=== PATIENT | male | born 1965 | race Caucasian/White ===

== ENCOUNTER 2018-06-05 20:08 | Observation (INO) ==
[2018-06-05] MEDS ORDERED: LACTATED RINGERS 1,000 ML IV STA (20:13)
[2018-06-05] MEDS ORDERED: DIPHTHERIA/TETANUS ADULT VACCINE 0.5 ML VIAL IM ONE (20:13)
[2018-06-05] MEDS ORDERED: ONDANSETRON 4 MG/2 ML VIAL ONE (20:16)
[2018-06-05] MEDS ORDERED: fentaNYL 100 MCG/2 ML VIAL ONE ×2 (20:17→23:26)
[2018-06-05] MEDS ORDERED: ONDANSETRON 4 MG/2 ML VIAL IV STA (20:18)
[2018-06-05] MEDS ORDERED: fentaNYL 100 MCG/2 ML VIAL IV STA (20:18)
[2018-06-05 20:27] LABS: Basophils % 0.4 % (0.0-0.8); Eosinophils # 0.1 10*3/uL (0.0-0.87); Eosinophils % 2.7 % (0.00-10.9); Hematocrit 35.6 VOL% (42.0-52.0); Hemoglobin 11.1 GM/DL (14.0-18.0); Immature Granulocytes % 0.7 %; Immature Granulocytes Absolute 0.03 #; Lymphocytes % 44.7 % (21.2-54.2); Mean Corpuscular HGB Conc 31.2 GM/DL (32-36); Mean Corpuscular Hemoglobin 27 PG (27-34); Mean Corpuscular Volume 86.6 FL (87-102); Mean Platelet Volume 10.2 FL (9.6-12.0); Monocytes # 0.5 10*3/uL (0.11-0.8); Monocytes % 10.4 % (1.7-12.7); Neutrophils # 1.9 10*3/uL (1.4-7.4); Neutrophils % 41.1 % (38.7-73.9); Platelet Count 228 T/CUMM (130-400); Red Blood Count 4.11 MC/CUMM (3.8-5.5); Red Cell Distribution Width 13.6 % (9.3-17.3); White Blood Count 4.5 T/CUMM (4-12)
[2018-06-05 20:37] LABS: INR 0.9; PT Patient Result 10.1 SECS; Partial Thromboplastin Time < 21.0 SECS (0-40)
[2018-06-05] MEDS ORDERED: LACTATED RINGERS 1,000 ML IV ONE (20:40)
[2018-06-05 20:48] LABS: Lactic Acid 7.6 MMOL/L (0.4-2.0)
[2018-06-05 20:49] LABS: Alanine Aminotransferase 20 U/L (16-61); Albumin 2.8 G/DL (3.4-5.0); Alkaline Phosphatase 105 U/L (45-117); Amylase 45 U/L (25-115); Aspartate Amino Transferase 18 U/L (0-37); Bilirubin,Total < 0.39 MG/DL (0.2-1.0); Blood Urea Nitrogen 15 MG/DL (7-18); Calcium 7.7 MG/DL (8.5-10.1); Glucose 149 MG/DL (74-106); Potassium 3.1 MMOL/L (3.5-5.1); Sodium 143 MMOL/L (136-145); Total Protein 5.9 G/DL (6.4-8.3)
[2018-06-05] MEDS ORDERED: SODIUM CHLORIDE 0.9% 1,000 ML IV STA (21:10)
[2018-06-05] MEDS ORDERED: ONDANSETRON 4 MG/2 ML VIAL IV PRN (21:50)
[2018-06-05] MEDS: LACTATED RINGERS 1,000 ML IV SCH (22:23)
[2018-06-05 22:33] LABS: Hematocrit 32.5 VOL% (42.0-52.0); Hemoglobin 10.2 GM/DL (14.0-18.0)
[2018-06-05] MEDS ORDERED: SEVOFLURANE 1 UNIT/15 MINUTE INH ONE (23:26)
[2018-06-05] MEDS ORDERED: PROPOFOL 200 MG/20 ML VIAL IV ONE (23:26)
[2018-06-05] MEDS ORDERED: MIDAZOLAM 2 MG/2 ML VIAL ONE (23:26)
[2018-06-05] MEDS ORDERED: PHENYLEPHRINE 1 MG/10 ML SYRINGE IV ONE (23:27)
[2018-06-05] MEDS ORDERED: SUCCINYLCHOLINE 200 MG/10 ML VIAL ONE (23:27)
[2018-06-05] MEDS ORDERED: ROCURONIUM 100 MG/10 ML VIAL IV ONE ×2 (23:27)
[2018-06-06 04:53] LABS: Calcium 6.9 MG/DL (8.5-10.1); Osmolality,Calculated 290.6 MOS/KG (273-304); Potassium 3.7 MMOL/L (3.5-5.1)
[2018-06-06 05:40] LABS: Hemoglobin 9.8 GM/DL (14.0-18.0)
[2018-06-06] MEDS: LACTATED RINGERS 1,000 ML IV SCH (06:32)
[2018-06-06 13:52] VITALS: BP 123/79
== END 2018-06-06 13:35 | disposition home or self-care (01) ==
LOC: N.ED 20:08 → N.EDINP 20:34 → INTOOBSV 20:34 → N.3E 20:53 → N.ICU 22:02
PROVIDERS: ADMIT Surgery; ATTEND Surgery

== ENCOUNTER 2020-02-25 17:51 | Inpatient (IN) ==
[2020-02-25] MEDS ORDERED: SUCCINYLCHOLINE 200 MG/10 ML VIAL IV ONE (17:52)
[2020-02-25] MEDS ORDERED: ETOMIDATE 20 MG/10 ML VIAL IV ONE (17:52)
[2020-02-25 17:59] LABS: Basophils # 0.1 10*3/uL (0.0-0.2); Basophils % 0.9 % (0.0-0.8); Eosinophils # 0.1 10*3/uL (0.0-0.87); Eosinophils % 1.3 % (0.00-10.9); Hematocrit 38.3 VOL% (42.0-52.0); Hemoglobin 12.1 GM/DL (14.0-18.0); Immature Granulocytes % 0.3 %; Immature Granulocytes Absolute 0.02 #; Lymphocytes # 3.4 10*3/uL (1.4-4.0); Lymphocytes % 47.9 % (21.2-54.2); Mean Corpuscular HGB Conc 31.6 GM/DL (32-36); Mean Corpuscular Volume 86.5 FL (87-102); Mean Platelet Volume 9.8 FL (9.6-12.0); Monocytes % 9.4 % (1.7-12.7); Neutrophils % 40.2 % (38.7-73.9); Platelet Count 297 T/CUMM (130-400); Red Blood Count 4.43 MC/CUMM (3.8-5.5); Red Cell Distribution Width 14.2 % (9.3-17.3); White Blood Count 7.1 T/CUMM (4-12)
[2020-02-25 18:14] LABS: ABG Base Excess -4.5 MMOL/L (-2.5-2.5); ABG HCO3 20.7 MMOL/L (20-26); ABG Oxygen Saturation 99.8 % (95-100)
[2020-02-25 18:15] LABS: ABG PH 7.168 (7.35-7.45)
[2020-02-25 18:22] LABS: Alanine Aminotransferase 38 U/L (16-61); Alkaline Phosphatase 100 U/L (45-117); Aspartate Amino Transferase 47 U/L (0-37); Blood Urea Nitrogen 24 MG/DL (7-18); Calcium 8.9 MG/DL (8.5-10.1); Estimated Glom Filtration Rate 55 ML/MIN; Glucose 228 MG/DL (74-106); Osmolality,Calculated 285.7 MOS/KG (273-304); Total Protein 8.1 G/DL (6.4-8.3)
[2020-02-25] MEDS ORDERED: LACTATED RINGERS 1,000 ML IV ONE ×2 (18:29→19:38)
[2020-02-25 19:28] LABS: Acetaminophen < 2.0 UG/ML (10-30); Salicylate < 2.8 MG/DL (2.8-20)
[2020-02-25 20:04] LABS: Apearance,Urine CLOUDY (Clear); Bilirubin,Urine Negative (Negative); Blood, Urine Large mg/dL (Negative); Glucose,Urine (UA) Negative (Negative); Hyaline Casts,Urine 17 /LPF (0-3); Ketones,Urine Negative (Negative); Mucus,Urine Occasional /LPF (Occasional); Nitrite,Urine Negative (Negative); Protein,Urine Negative; RBC,Urine 184 /HPF (0-4); Sperm,Urine Many /HPF (Negative); Urine Color Yellow (Yellow); Urine Specific Gravity 1.021 (1.001-1.035); WBC,Urine 74 /HPF (0-6)
[2020-02-25 20:06] LABS: ABG Base Excess -1.7 MMOL/L (-2.5-2.5); ABG PCO2 52.6 MM HG (35-48); ABG PH 7.292 (7.35-7.45); ABG TCO2 23.3 MMOL/L (23-27); Allen Test Positive; Pt O2 Delivery Device Ventilator
[2020-02-25] MEDS ORDERED: ALBUTEROL 2.5 MG/3 ML NEB RESP TX PRN (20:10)
[2020-02-25] MEDS ORDERED: ALBUTEROL/IPRATROPIUM 3 ML NEB RESP TX PRN (20:10)
[2020-02-25] MEDS ORDERED: ONDANSETRON 4 MG/2 ML VIAL IV PRN (20:10)
[2020-02-25 20:12] LABS: Barbiturates Screen,Urine Negative (Negative); Benzodiazepines Screen,Urine Negative (Negative); Cannabinoid Screen,Urine Negative (Negative); Opiate Screen,Urine Negative (Negative); Phencyclidine Screen,Urine Negative (Negative)
[2020-02-25] MEDS ORDERED: DEXTROSE 5% NACL 0.9% 1,000 ML IV SCH (20:30)
[2020-02-25] MEDS ORDERED: NITROGLYCERIN 2% OINT 1 INCH/GM PACK TOP ONE ×2 (20:41→21:01)
[2020-02-25] MEDS ORDERED: ASPIRIN 325 MG TABLET ONE (20:41)
[2020-02-25] MEDS ORDERED: ASPIRIN 325 MG TABLET PO ONE (21:02)
[2020-02-25 21:41] VITALS: BP 95/65
[2020-02-25 22:14] LABS: ABG HCO3 25.3 MMOL/L (20-26); ABG PCO2 41.6 MM HG (35-48); ABG PH 7.401 (7.35-7.45); ABG TCO2 23.1 MMOL/L (23-27)
[2020-02-25] MEDS: ENOXAPARIN 40 MG/0.4 ML SYRINGE SUBCUT SCH (22:24)
[2020-02-25] MEDS: PANTOPRAZOLE 40 MG VIAL IV SCH (22:24)
[2020-02-25] MEDS: LACTATED RINGERS 1,000 ML IV SCH (22:25)
[2020-02-26] MEDS: LACTATED RINGERS 1,000 ML IV SCH ×5 (01:24→23:05)
[2020-02-26 03:54] LABS: ABG Base Excess 0.8 MMOL/L (-2.5-2.5); ABG HCO3 25.1 MMOL/L (20-26); ABG Oxygen Saturation 99.6 % (95-100); ABG PCO2 36.1 MM HG (35-48); ABG PH 7.441 (7.35-7.45); ABG TCO2 22.2 MMOL/L (23-27); Allen Test Positive; Pt O2 Delivery Device Ventilator
[2020-02-26 03:59] LABS: Basophils % 0.5 % (0.0-0.8); Eosinophils # 0.1 10*3/uL (0.0-0.87); Eosinophils % 1.9 % (0.00-10.9); Hematocrit 33.2 VOL% (42.0-52.0); Hemoglobin 10.7 GM/DL (14.0-18.0); Immature Granulocytes % 0.2 %; Immature Granulocytes Absolute 0.01 #; Lymphocytes # 1.4 10*3/uL (1.4-4.0); Lymphocytes % 33.4 % (21.2-54.2); Mean Corpuscular HGB Conc 32.2 GM/DL (32-36); Mean Corpuscular Volume 83.6 FL (87-102); Mean Platelet Volume 9.8 FL (9.6-12.0); Monocytes % 8.7 % (1.7-12.7); Neutrophils % 55.3 % (38.7-73.9); Red Blood Count 3.97 MC/CUMM (3.8-5.5); Red Cell Distribution Width 14.1 % (9.3-17.3)
[2020-02-26 04:00] LABS: Platelet Count 202 T/CUMM (130-400); White Blood Count 4.1 T/CUMM (4-12)
[2020-02-26] MEDS ORDERED: DEXAMETHASONE INJ 10 MG in SODIUM CHLORIDE 0.9% 50 ML IV ONE (04:00)
[2020-02-26 04:17] LABS: Hypochromasia 1+; Platelet Estimate Normal
[2020-02-26 04:29] LABS: Albumin 2.9 G/DL (3.4-5.0); Bilirubin,Total 1.1 MG/DL (0.2-1.0); Calcium 8.5 MG/DL (8.5-10.1); Osmolality,Calculated 285.1 MOS/KG (273-304); Thyroid Stimulating Hormone 2.34 uIU/ml (0.358-3.74)
[2020-02-26 04:34] LABS: Troponin I 0.076 NG/ML (0.00-0.045)
[2020-02-26] MEDS: PANTOPRAZOLE 40 MG VIAL IV SCH (20:02)
[2020-02-26] MEDS: ENOXAPARIN 40 MG/0.4 ML SYRINGE SUBCUT SCH (20:02)
[2020-02-27 03:31] LABS: ABG Base Excess 1.6 MMOL/L (-2.5-2.5); ABG HCO3 25.9 MMOL/L (20-26); ABG Oxygen Saturation 97.7 % (95-100); ABG PCO2 45.3 MM HG (35-48); ABG PH 7.385 (7.35-7.45); ABG PO2 95.8 MM HG (80-95); ABG TCO2 24.4 MMOL/L (23-27); Allen Test Positive
[2020-02-27 04:47] LABS: Basophils % 0.2 % (0.0-0.8); Hematocrit 34.9 VOL% (42.0-52.0); Hemoglobin 11.2 GM/DL (14.0-18.0); Immature Granulocytes % 0.2 %; Immature Granulocytes Absolute 0.01 #; Lymphocytes # 1.2 10*3/uL (1.4-4.0); Mean Corpuscular HGB Conc 32.1 GM/DL (32-36); Mean Corpuscular Volume 85.7 FL (87-102); Mean Platelet Volume 10.3 FL (9.6-12.0); Monocytes % 7.8 % (1.7-12.7); Neutrophils % 62.8 % (38.7-73.9); Platelet Count 213 T/CUMM (130-400); Red Blood Count 4.07 MC/CUMM (3.8-5.5); Red Cell Distribution Width 13.8 % (9.3-17.3); White Blood Count 4.1 T/CUMM (4-12)
[2020-02-27 05:10] LABS: Albumin 2.7 G/DL (3.4-5.0); Bilirubin,Total 0.7 MG/DL (0.2-1.0); Calcium 8.3 MG/DL (8.5-10.1); Osmolality,Calculated 275.7 MOS/KG (273-304)
[2020-02-27] MEDS: LACTATED RINGERS 1,000 ML IV SCH (05:47)
== END 2020-02-27 12:55 | disposition home or self-care (01) | DRG 917 ==
LOC: N.ED 17:51 → SUATTDRO 20:10 → N.EDINP 20:10 → N.ICU 20:27
PROVIDERS: ADMIT Student in an Organized Health Care Education/Training Program; ATTEND Internal Medicine